=== PATIENT | male | born 1975 | race African-American/Black ===

== ENCOUNTER 2017-12-05 04:44 | Emergency (ER) | payer OTHER ==
[~2017-12-05] VITALS: Ht 180.3 cm; Wt 141.4 kg
[2017-12-05 05:28] LABS: BASOPHIL (%) 0.3 % (0-1); BASOPHIL COUNT 0.1 K/uL (0-0.1); EOSINOPHIL (%) 1.6 % (0-5); EOSINOPHIL COUNT 0.4 K/uL (0-0.3); HEMATOCRIT 39.2 % (38.0-50.0); LYMPHOCYTE (%) 13.8 % (15-42); LYMPHOCYTE COUNT 3.9 K/uL (1.0-2.8); MCHC 33.2 G/DL (30.0-36.0); MCV 87.3 FL (86-99); MONOCYTE (%) 2.6 % (3-12); MONOCYTE COUNT 0.7 K/uL (0-0.8); NEUTROPHIL (%) 79.7 % (45-76); NEUTROPHIL COUNT 22.3 K/uL (1.8-6.4); PLATELET COUNT 299 K/uL (156-360); RBC DIS.WIDTH-CV 14.1 % (11.8-14.6); RBC DIS.WIDTH-SD 44.7 % (39-53); RED BLOOD COUNT 4.49 M/uL (4.00-5.50); WHITE BLOOD COUNT 27.9 K/uL (4.1-10.2)
[2017-12-05 05:32] LABS: AMYLASE 214 IU/L (1-118)
[2017-12-05 05:34] LABS: CHLORIDE 104 mEq/L (99-109); POTASSIUM 3.4 mEq/L (3.7-5.4); SODIUM 144 mEq/L (136-147)
[2017-12-05 05:36] LABS: GLUCOSE 187 mg/dL (70-99)
[2017-12-05 05:39] LABS: SERUM ETHYL ALCOHOL < 10 mg/dL
[2017-12-05 05:40] LABS: CREATININE 1.7 mg/dL (0.6-1.3); UREA NITROGEN (BUN) 16 mg/dL (9-23)
[2017-12-05 05:41] LABS: LIPASE 303 U/L (1.0-51.0)
[2017-12-05 05:48] LABS: GFR ESTIMATE (CALCULATED) 47 mL/min/ (58.99-99999)
[2017-12-05 05:49] LABS: TROP-I INTERPRETATION NEGATIVE; TROPONIN-I 0.02 ng/mL (0.0-0.30)
[2017-12-05 06:12] LABS: COMMENTS - BLOOD GASES C+A+; DEVICE VENT; FI02 100 %; MECHANICAL RATE 16 resp/min; MODE AC; PCO2 51 mm Hg (35-45); PEEP 8 CM/H20; PO2 346 mm Hg (80-100); SITE LR; TIDAL VOLUME 500 ML; TOTAL RESP RATE 16 resp/min; pH 7.32 (7.35-7.45)
[2017-12-05 06:13] LABS: BASE EXCESS -0.2 mEq/L (-3 to +3); BICARBONATE 26.3 mEq/L (22-26); CARBOXY HGB 3.4 % (0-5); METHEMOGLOBIN 1.4 % (0-1.5)
[2017-12-05 07:14] LABS: APPEARANCE SL.HAZY ((CLEAR)); BILIRUBIN NEGATIVE; BLOOD LARGE; COLOR YELLOW ((YELLOW)); GLUCOSE (STRIP) NEGATIVE; KETONES NEGATIVE; LEUKOCYTES NEGATIVE; NITRITE NEGATIVE; PROTEIN (STRIP) 100; SPECIFIC GRAVITY 1.018 (1.000-1.030); UROBILINOGEN 0.2 MG/DL (0.2-1.0)
[2017-12-05 07:31] LABS: AMPHETAMINE NEGATIVE (500 ng/mL); BARBITURATES NEGATIVE (200 ng/mL); BENZODIAZEPINES NEGATIVE (150 ng/mL); BUPRENORPHINE NEGATIVE (10 ng/mL); COCAINE NEGATIVE (150 ng/mL); METHADONE NEGATIVE (200 ng/mL); METHAMPHETAMINE NEGATIVE (500 ng/mL); OPIATES (MORPHINE) PRESUMPTIVE POSITIVE (100 ng/mL); OXYCODONE NEGATIVE (100 ng/mL); PHENCYCLIDINE NEGATIVE (25 ng/mL); PROPOXYPHENE NEGATIVE (300 ng/mL); THC CANNABINOIDS NEGATIVE (50 ng/mL); TRICYCLIC ANTIDEPRESSANTS NEGATIVE (300 ng/mL)
[2017-12-05 07:37] LABS: BACTERIA RARE /HPF; EPITHELIAL CELLS 1+ /HPF; MUCUS RARE /LPF; RED BLOOD CELLS 40-50 /HPF (0-5); UCUL ADDED? NO; WHITE BLOOD CELLS 0-5 /HPF (0-5)
== END 2017-12-05 07:12 | disposition short-term general hospital (02) ==
LOC: TRA 04:44 → EME 04:44 → TRA 07:12
PROVIDERS: Emergency Medicine
DX: I71.2 Thoracic aortic aneurysm, without rupture (principal); S32.039A Unspecified fracture of third lumbar vertebra, initial encounter for closed fracture; S32.029A Unspecified fracture of second lumbar vertebra, initial encounter for closed fracture; S36.115A Moderate laceration of liver, initial encounter; R91.8 Other nonspecific abnormal finding of lung field; S22.41XA Multiple fractures of ribs, right side, initial encounter for closed fracture; S27.339A Laceration of lung, unspecified, initial encounter; S37.051A Moderate laceration of right kidney, initial encounter; S32.82XA Multiple fractures of pelvis without disruption of pelvic ring, initial encounter for closed fracture; S32.402A Unspecified fracture of left acetabulum, initial encounter for closed fracture; S82.002A Unspecified fracture of left patella, initial encounter for closed fracture; V49.40XA Driver injured in collision with unspecified motor vehicles in traffic accident, initial encounter; Y92.410 Unspecified street and highway as the place of occurrence of the external cause; Z23 Encounter for immunization; R40.2412 Glasgow coma scale score 13-15, at arrival to emergency department
CPT/HCPCS: 31500; 36600; 70450; 70486; 71045; 71260; 72125; 72129; 72132; 73560; 74177; 80048; 81003; 82150; 82803; 83690; 84484; 84999; 85025; 86850; 86900; 86901; 86920; 90832; 94002; 99281; 99285; G0480; J0690; J2250; J3010; P9016